=== PATIENT | male | born 1995 | race Caucasian/White ===

== ENCOUNTER 2017-06-07 14:07 | Emergency (ER) | payer SELFPAY ==
[2017-06-07] MEDS: IBUPROFEN 600 MG TAB PO (17:31)
[2017-06-07] MEDS: LIDOCAINE 2% (MDV) 20 ML INJ INJ (17:32)
[2017-06-07] MEDS: CEFTRIAXONE 1 GM INJ IM (17:32)
== END 2017-06-07 18:24 | disposition home or self-care (01) ==
LOC: FTE 14:07
DX: L03.114 Cellulitis of left upper limb (principal); F17.210 Nicotine dependence, cigarettes, uncomplicated
CPT/HCPCS: 73130; 73130-LT; 96372; 99284-25